=== PATIENT | female | born 1985 | race Hispanic/Latino ===

== ENCOUNTER 2021-09-28 17:52 | Inpatient (IN) | payer MEDICAID, OTHER, SELFPAY ==
[2021-09-28] MEDS ORDERED: hydrALAZINE 20 MG/ML VIAL SLOW IVP PRN (18:55)
[2021-09-28 19:01] VITALS: BMI 32.0
[2021-09-28 19:12] LABS: #Eosinphils 0.2 10x3/uL (0.0-0.5); #Monocytes 0.8 10x3/uL (0.0-1.1); %Basophils 0.2 % (0.0-2.0); %Eosinophils 1.9 % (0.0-6.0); %Lymphocytes 4.6 % (18.0-47.0); %Monocytes 6.3 % (0.0-10.0); %Neutrophils 86.7 % (40.0-75.0); Mean Corpuscular Hemoglobin 28.6 pg (27.0-33.0); Mean Corpuscular Volume 86.5 fl (81.6-98.3); Mean Platelet Volume 10.1 fl (7.4-10.4); Platelet Count 255 10x3/uL (150-450); RBC Distribution Width 13.9 % (11.5-14.5); Red Blood Cell (RBC) Count 3.85 10x6/uL (3.90-5.03); White Blood Cell (WBC) Count 12.7 10x3/uL (3.5-10.5)
[2021-09-28 19:51] LABS: Bilirubin Neg (Negative); Blood, Urine 50 (Negative); Clarity Cloudy (Clear); Glucose, Urine (Dipstick) Normal (Negative); Ketone, Urine 150 mg/dL (Negative); Leukocyte 500 (Negative); Nitrite Positive (Negative); Protein, Urine (Dipstick) 30 mg/dl (Neg-Trace); Urobilinogen Normal mg/dL (Less than 2)
[2021-09-28 20:10] LABS: Bacteria/HPF 4+ HPF (None Seen); Epithelial Cast 0-3 LPF (None Seen); RBC/HPF 0-3 HPF (0-3); WBC/HPF 21-50 HPF (0-3)
[2021-09-28] MEDS ORDERED: Ondansetron PF 4 MG/2 ML Vial IVP PRN (20:13)
[2021-09-28] MEDS ORDERED: Ondansetron ODT 4 MG TAB PO PRN (20:13)
[2021-09-28] MEDS: Sodium Chloride 0.9% 1,000 ML IV SCH (20:39)
[2021-09-28] MEDS: cefTRIAXone\\ROCEPHIN 2 GM in Sodium Chloride 0.9% 100 ML IVPB SCH (20:40)
[2021-09-29] MEDS: Sodium Chloride 0.9% 1,000 ML IV SCH ×3 (00:15→19:00)
[2021-09-29] MEDS: Acetaminophen 500 MG TAB PO PRN (10:53)
[2021-09-29 21:11] LABS: SARS-CoV-2 PCR by NAA Not Detected (NotDetected)
[2021-09-29] MEDS: cefTRIAXone\\ROCEPHIN 2 GM in Sodium Chloride 0.9% 100 ML IVPB SCH (21:12)
[2021-09-30] MEDS: Acetaminophen 500 MG TAB PO PRN (03:49)
[2021-09-30] MEDS: Sodium Chloride 0.9% 1,000 ML IV SCH (03:49)
[2021-09-30 07:39] VITALS: TEMP 97.7
[2021-09-30 11:17] VITALS: BP 100/56
[2021-09-30] MEDS ORDERED: cefTRIAXone\\ROCEPHIN 2 GM in Sodium Chloride 0.9% 100 ML IVPB SCH (15:00)
[2021-09-30] MEDS ORDERED: Sodium Chloride 0.9% 0 ML ONE (15:17)
== END 2021-09-30 17:25 | disposition home or self-care (01) | DRG 833 ==
LOC: CSHLD/OP 17:52 → CSHLD 20:21 → CSHANTE 09-29 00:23
PROVIDERS: ADMIT Family Medicine; ATTEND Family Medicine
DX: O23.03 Infections of kidney in pregnancy, third trimester (principal); O34.211 Maternal care for low transverse scar from previous cesarean delivery; Z20.822 Contact with and (suspected) exposure to COVID-19; Z3A.30 30 weeks gestation of pregnancy; Z87.440 Personal history of urinary (tract) infections
CPT/HCPCS: 81001; 85025; J0696; J3490; J7050; U0003; U0005

== ENCOUNTER 2021-12-01 09:21 | Inpatient (IN) | payer MEDICAID, OTHER ==
[2021-11-30 13:49] LABS: Hemoglobin 10.3 g/dL (12.0-15.5); Mean Corpuscular HGB CONC 31.7 g/dL (32.0-36.0); Mean Corpuscular Hemoglobin 26.9 pg (27.0-33.0); Mean Corpuscular Volume 84.9 fl (81.6-98.3); Mean Platelet Volume 10.3 fl (7.4-10.4); Platelet Count 308 10x3/uL (150-450); RBC Distribution Width 14.7 % (11.5-14.5); Red Blood Cell (RBC) Count 3.83 10x6/uL (3.90-5.03); White Blood Cell (WBC) Count 8.3 10x3/uL (3.5-10.5)
[2021-11-30 14:54] LABS: Hep B Surf Ag Non-Reactive S/CO (NonReactive); SARS-CoV-2 NAA Rapid Test Not Detected (NotDetected)
[2021-11-30 14:55] LABS: Syphilis Antibody Nonreactive (Nonreactive); Syphilis Antibody Index 0.03 S/CO (<1.00 Non-Reactive)
[2021-11-30 14:57] LABS: HBSAg Index 0.22 S/CO (0-0.99)
[2021-12-01] MEDS ORDERED: Bicitra 30 ML UDCUP PO PRN (10:07)
[2021-12-01] MEDS ORDERED: hydrALAZINE 20 MG/ML VIAL SLOW IVP PRN ×2 (10:07→15:26)
[2021-12-01] MEDS ORDERED: Famotidine/PF 20 mg/2ml Vial SLOW IVP PRN (10:07)
[2021-12-01] MEDS ORDERED: Promethazine HCl 25 MG/ML VIAL IM PRN ×3 (10:07→15:26)
[2021-12-01] MEDS ORDERED: Lactated Ringer's 1,000 ML IV SCH (10:07)
[2021-12-01] MEDS ORDERED: Ondansetron PF 4 MG/2 ML Vial IVP PRN ×3 (10:07→15:26)
[2021-12-01 10:08] VITALS: BMI 34.1
[2021-12-01] MEDS ORDERED: CEFAZOLIN 2 GM in Sodium Chloride 0.9% 100 ML IVPB SCH (10:30)
[2021-12-01] MEDS ORDERED: Oxytocin 10 UNITS/ML VIAL ONE ×2 (12:07→13:11)
[2021-12-01] MEDS ORDERED: Dexamethasone 4 mg/ml Vial ONE (12:07)
[2021-12-01] MEDS ORDERED: Ondansetron PF 4 MG/2 ML Vial ONE (12:07)
[2021-12-01] MEDS ORDERED: Phenylephrine 40 MG/NS 250 ML 250 ML ONE (12:07)
[2021-12-01] MEDS ORDERED: Ketorolac Tromethamine 30 MG/ML VIAL ONE (12:07)
[2021-12-01] MEDS ORDERED: Morphine PF 10 MG/10 ML VIAL ONE (12:07)
[2021-12-01] MEDS ORDERED: Naloxone HCl 0.4 mg/ml Vial IVP PRN ×2 (13:59)
[2021-12-01] MEDS ORDERED: Meperidine HCl/PF 25 MG/ML VIAL SLOW IVP PRN (13:59)
[2021-12-01] MEDS ORDERED: Fentanyl 100 MCG/2 ML VIAL SLOW IVP PRN (13:59)
[2021-12-01] MEDS ORDERED: Ketorolac Tromethamine 30 MG/ML VIAL IVP PRN (13:59)
[2021-12-01] MEDS ORDERED: Ondansetron HCl/PF 4 MG/2 ML Vial IVP PRN (13:59)
[2021-12-01] MEDS ORDERED: diphenhydrAMINE 50 MG/ML VIAL IVP PRN (13:59)
[2021-12-01] MEDS ORDERED: Promethazine HCl 25 MG SUPP PR PRN (13:59)
[2021-12-01] MEDS ORDERED: Naloxone HCl 0.4 mg/ml Vial IV PRN (13:59)
[2021-12-01] MEDS ORDERED: Moisturizing Cream (Eucerin) 113 GM JAR TOP PRN (13:59)
[2021-12-01] MEDS ORDERED: Communication Order-Pharmacy FS SCH (14:00)
[2021-12-01] MEDS ORDERED: Ketorolac Tromethamine 30 MG/ML VIAL IVP SCH ×2 (14:00→18:00)
[2021-12-01] MEDS ORDERED: Lanolin Ointment 7 GM TUBE TOP PRN (15:26)
[2021-12-01] MEDS ORDERED: Meperidine HCl/PF 25 MG/ML VIAL IM PRN (15:26)
[2021-12-01] MEDS ORDERED: Bisacodyl 10 MG SUPP PR PRN (15:26)
[2021-12-01] MEDS ORDERED: diphenhydrAMINE 25 MG CAP PO PRN (15:26)
[2021-12-01] MEDS: Docusate 100 MG CAP PO SCH (23:20)
[2021-12-01] MEDS: Ferrous Sulfate 325 MG TAB PO SCH (23:20)
[2021-12-02] MEDS: Ketorolac Tromethamine 30 MG/ML VIAL IVP SCH ×3 (01:02→06:42)
[2021-12-02] MEDS ORDERED: HYDROcodone/Acetaminophen 5/325 mg Tablet PO PRN (02:00)
[2021-12-02 06:01] LABS: Hemoglobin 9.2 g/dL (12.0-15.5); Mean Corpuscular HGB CONC 32.9 g/dL (32.0-36.0); Mean Corpuscular Hemoglobin 27.5 pg (27.0-33.0); Mean Corpuscular Volume 83.8 fl (81.6-98.3); Mean Platelet Volume 10.6 fl (7.4-10.4); Platelet Count 245 10x3/uL (150-450); RBC Distribution Width 14.8 % (11.5-14.5); Red Blood Cell (RBC) Count 3.34 10x6/uL (3.90-5.03)
[2021-12-02] MEDS: Prenatal Vitamin 1 TAB PO SCH (08:19)
[2021-12-02] MEDS: Ferrous Sulfate 325 MG TAB PO SCH ×2 (08:19→21:38)
[2021-12-02] MEDS: Docusate 100 MG CAP PO SCH ×2 (08:19→21:38)
[2021-12-02] MEDS: HYDROcodone/Acetaminophen 5/325 mg Tablet PO PRN ×2 (13:51→21:38)
[2021-12-02] MEDS: Simethicone Chewable 80 MG TAB PO PRN ×2 (13:51→21:38)
[2021-12-02] MEDS ORDERED: Boostrix 0.5 ML (Tdap) VIAL IM ONE (15:26)
[2021-12-02] MEDS: Ibuprofen 800 MG TAB PO SCH (21:38)
[2021-12-03] MEDS: Ibuprofen 800 MG TAB PO SCH ×3 (05:55→22:17)
[2021-12-03] MEDS: Simethicone Chewable 80 MG TAB PO PRN ×2 (05:55→22:17)
[2021-12-03] MEDS: HYDROcodone/Acetaminophen 5/325 mg Tablet PO PRN (05:56)
[2021-12-03] MEDS: Ferrous Sulfate 325 MG TAB PO SCH ×2 (08:42→22:16)
[2021-12-03] MEDS: Docusate 100 MG CAP PO SCH ×2 (08:43→22:17)
[2021-12-03] MEDS: Prenatal Vitamin 1 TAB PO SCH (08:43)
[2021-12-04] MEDS: Simethicone Chewable 80 MG TAB PO PRN (05:31)
[2021-12-04] MEDS: Ibuprofen 800 MG TAB PO SCH (05:32)
[2021-12-04 07:54] VITALS: BP 110/64; TEMP 97.7
== END 2021-12-04 11:50 | disposition home or self-care (01) | DRG 788 ==
LOC: CSHLD 09:21 → CSHPP 15:40
PROVIDERS: ADMIT Family Medicine; ATTEND Family Medicine
PROC: 10D00Z1 Extraction of Products of Conception, Low, Open Approach (ICD-10-PCS; principal; 2021-12-01)
DX: O34.211 Maternal care for low transverse scar from previous cesarean delivery (principal); Z20.822 Contact with and (suspected) exposure to COVID-19; Z3A.39 39 weeks gestation of pregnancy; Z37.0 Single live birth; O22.03 Varicose veins of lower extremity in pregnancy, third trimester; I83.92 Asymptomatic varicose veins of left lower extremity
CPT/HCPCS: 36415; 51702; 85027; 86780; 86850; 86900; 86901; 87340; J0690; J1100; J1885; J2274; J2405; J2590; J3490; S0028; U0002